=== PATIENT | male | born 1950 | race Hispanic/Latino ===

== ENCOUNTER 2021-12-15 11:26 | Outpatient (CLI) | payer OTHER, MEDICARE | END 2021-12-15 11:27 | disposition home or self-care (01) | LOC: NAV RAD 11:26 | PROVIDERS: ATTEND Family Medicine | DX: M75.52 Bursitis of left shoulder (principal) ==

== ENCOUNTER 2024-01-10 10:51 | Emergency (ER) | payer OTHER ==
[2024-01-10 11:26] LABS: #Basophils 0.1 thou/uL (0.0-0.2); #Eosinophils 0.2 thou/uL (0.0-0.7); #Lymphocytes 0.9 thou/uL (1.20-3.40); #Monocytes 0.6 thou/uL (0.11-0.59); #Neutrophils 3.7 thou/uL (1.40-6.50); %Basophils 1.5 % (0.0-1.0); %Eosinophils 4.3 % (0.0-10.0); %Lymphocytes 16.7 % (21.0-51.0); %Monocytes 11.1 % (0.0-10.0); %Neutrophils 66.5 % (42.0-75.0); Hematocrit 48.6 % (42.0-52.0); Hemoglobin 15.6 g/dL (14.0-18.0); Mean Corpuscular Hemoglobin 29.7 pg (27.0-31.0); Mean Corpuscular Volume 92.8 fl (78.0-98.0); Platelet Count 198 10x3/uL (130-400); RBC Distribution Width 11.5 % (11.5-14.5); Red Blood Cell (RBC) Count 5.24 mill/uL (4.70-6.10); White Blood Cell (WBC) Count 5.6 10x3/uL (4.8-10.8)
[2024-01-10 11:39] LABS: INR-International Normal Ratio 1.1; Prothrombin Time 13.7 sec (12.0-14.7)
[2024-01-10 11:41] LABS: D-Dimer Test 1.49 mcg/mL (0.27-0.43)
[2024-01-10 11:50] LABS: ALT (SGPT) 47 U/L (8-55); AST (SGOT) 26 U/L (5-34); Albumin 3.7 g/dL (3.4-4.8); Alkaline Phosphatase 93 U/L (40-110); Anion Gap 13 mmol/L (10-20); BUN (Urea Nitrogen) 23 mg/dL (8.4-25.7); Bilirubin, Total 0.8 mg/dL (0.2-1.2); Calc. Creatinine Clearance 0 mL/min (70-130); Calcium 9.9 mg/dL (7.8-10.44); Carbon Dioxide 30 mmol/L (23-31); Chloride 97 mmol/L (98-107); Estimated GFR 74; Globulin 4.2 g/dL (2.4-3.5); Glucose 144 mg/dL (83-110); Potassium 3.1 mmol/L (3.5-5.1); Protein, Total 7.9 g/dL (5.8-8.1); Sodium 137 mmol/L (136-145)
== END 2024-01-10 13:00 | disposition short-term general hospital (02) ==
LOC: NAV ERS 10:51
DX: M79.89 Other specified soft tissue disorders (principal); I10 Essential (primary) hypertension; G40.909 Epilepsy, unspecified, not intractable, without status epilepticus; I25.10 Atherosclerotic heart disease of native coronary artery without angina pectoris; Z79.899 Other long term (current) drug therapy
CPT/HCPCS: 36415; 80053; 85025; 85379; 85610; 99284